=== PATIENT | female | born 1950 | race Two or more races ===

== ENCOUNTER 2019-04-09 13:55 | Outpatient (CLI) | payer MEDICARE | END 2019-04-09 23:59 | disposition home or self-care (01) | LOC: WOU 13:55 | PROVIDERS: ATTEND Surgery | DX: K57.20 Diverticulitis of large intestine with perforation and abscess without bleeding (principal); K80.80 Other cholelithiasis without obstruction; I35.2 Nonrheumatic aortic (valve) stenosis with insufficiency; E66.09 Other obesity due to excess calories; Z68.31 Body mass index [BMI] 31.0-31.9, adult; I10 Essential (primary) hypertension; Z95.2 Presence of prosthetic heart valve; Z79.82 Long term (current) use of aspirin | CPT/HCPCS: G0463 ==